=== PATIENT | male | born 1985 | race Caucasian/White ===

== ENCOUNTER 2019-10-27 00:14 | Emergency (ER) | payer OTHER ==
--- NOTE | 2019-10-27 00:46 | ED Physician Documentation ---
PD HPI BACK PAIN - Stated complaint Stated Complaint: BACK INJ - Chief complaint Chief Complaint: Back Pain - History obtained from History obtained from: Patient - History of Present Illness Timing - onset: How many days ago (4) Pain level now: 8 Location: Lower, Right, Left Quality: Pain Associated symptoms: No: Fever, Weakness, Numbness, Incontinent of urine, Unable to urinate, Hematuria, Incontinent of stool Improves with: Rest, Position (standing) Worsened by: Other (sitting/lying down; action of standing back up) Similar symptoms before: Has not had sx before Recently seen: Not recently seen - Additional information Additional information: 4 days ago, while skateboarding, patient had a few minor falls which didn't seem to cause any injury. That night, he had gradual onset, progressively worsening low back pain, worse the next morning but improved by the end of day 2. He played golf the following day without difficulty. Today, he again played golf but on his final swing of the day, he had sudden recurrence of the low back pain, more severe than previous; the pain has become progressively more intense and unrelenting. Review of Systems Constitutional: denies: Fever : denies: Unable to Void, Incontinent Skin: denies: Rash Musculoskeletal: reports: Back pain. denies: Neck pain, Pain with weight bearing Neurologic: denies: Focal weakness, Numbness PD PAST MEDICAL HISTORY - Past Medical History Past Medical History: No - Past Surgical History Past Surgical History: No - Present Medications Home Medications: Ambulatory Orders Medication Instructions Recorded Confirmed Acetaminophen 1,000 mg PO ONCE 10/27/19 10/27/19 Cyclobenzaprine [Flexeril] 10 mg PO TID PRN #20 tablet 10/27/19 HYDROcod/ACETAM 5/325 [[place] 5/325] 1 - 2 ea PO Q6H PRN #15 tablet 10/27/19 Ibuprofen [Motrin] 800 mg ORAL ONCE 10/27/19 10/27/19 - Allergies Allergies/Adverse Reactions: Allergies Allergy/AdvReac Type Severity Reaction Status Date / Time yellow fever vaccine live Allergy Anaphylaxis Verified 10/27/19 00:21 - Living Situation Living Arrangement: reports: At home - Social History Does the pt smoke?: No PD ED PE NORMAL - Vitals Vital signs reviewed: Yes - General General: Alert and oriented X 3, Well developed/nourished, Other (standing at bedside (patient says less pain when standing), appears uncomfortable at times during H+P) - Back Back: No CVA TTP, No spinal TTP - Derm Derm: Normal color, Warm and dry, No rash - Neuro Neuro: No motor deficit (5/5 dorsi/plantarflexion), No sensory deficit, Other (2+/4 bilateral patellar DTR) Results - Vitals Vitals: Vital Signs - 24 hr 10/27/19 10/27/19 00:17 01:55 Temperature 36.2 C L Heart Rate 78 88 Respiratory 18 16 Rate Blood Pressure 155/101 H 135/90 H O2 Saturation 96 99 Oxygen O2 Source Room air PD MEDICAL DECISION MAKING - ED course Complexity details: considered differential, d/w patient ED course: atraumatic low back pain without "red flags" (no fever, numbness, weakness, incontinence of bowel/bladder). emergent testing not indicated at this time; will treat symptoms and advise rest, return if worse, f/u with PMD Departure - Departure Disposition: 01 Home, Self Care Clinical Impression: Lumbar sprain Condition: Good Instructions: ED Sprain Strain Lumbar Follow-Up: [facility] [Provider Group] - Within 1 week Prescriptions: Cyclobenzaprine [Flexeril] 10 mg PO TID PRN #20 tablet PRN Reason: Spasms HYDROcod/ACETAM 5/325 [[place] 5/325] 1 - 2 ea PO Q6H PRN #15 tablet PRN Reason: Pain Forms: Activity restrictions Discharge Date/Time: 10/27/19 01:56
[2019-10-27] MEDS ORDERED: KETOROLAC 60 MG/2 ML VIAL IM STA (01:31)
[2019-10-27] MEDS ORDERED: HYDROcod/ACET 5/325 Prepack 4 PO STA (01:32)
[2019-10-27] MEDS ORDERED: CYCLOBENZAPRINE 10 MG Prepack 2 PO PRN (01:32)
[2019-10-27 01:56] VITALS: BP 135/90
== END 2019-10-27 01:56 | disposition home or self-care (01) ==
LOC: ED 00:14
DX: S33.5XXA Sprain of ligaments of lumbar spine, initial encounter (principal); V00.131A Fall from skateboard, initial encounter; Y93.51 Activity, roller skating (inline) and skateboarding; X50.9XXA Other and unspecified overexertion or strenuous movements or postures, initial encounter; Y93.53 Activity, golf; Y92.39 Other specified sports and athletic area as the place of occurrence of the external cause
CPT/HCPCS: 96372; 99283

== ENCOUNTER 2019-12-23 19:18 | Emergency (ER) | payer OTHER ==
[2019-12-23] MEDS ORDERED: KETOROLAC 60 MG/2 ML VIAL IM STA (19:49)
--- NOTE | 2019-12-23 19:53 | ED Physician Documentation ---
History of Present Illness - Stated complaint Stated Complaint: RT ANKLE INJ - Chief complaint Chief Complaint: Trauma Ext - Additonal information Additional information: 34-year-old male here with acute right lateral ankle pain after an inversion injury when skating this afternoon. He reports landing wrong on the right foot and injuring the ankle. He does have a history of minor sprains but no orthopedic surgeries. He is able to bear minimal weight on the right foot. PD PAST MEDICAL HISTORY - Past Surgical History Past Surgical History: No - Present Medications Home Medications: Ambulatory Orders Medication Instructions Recorded Confirmed Acetaminophen 1,000 mg PO ONCE 10/27/19 10/27/19 Cyclobenzaprine [Flexeril] 10 mg PO TID PRN #20 tablet 10/27/19 HYDROcod/ACETAM 5/325 [[place] 5/325] 1 - 2 ea PO Q6H PRN #15 tablet 10/27/19 Ibuprofen [Motrin] 800 mg ORAL ONCE 10/27/19 10/27/19 Ibuprofen [Motrin] 600 mg PO Q6H PRN #30 tab 12/23/19 - Allergies Allergies/Adverse Reactions: Allergies Allergy/AdvReac Type Severity Reaction Status Date / Time yellow fever vaccine live Allergy Anaphylaxis Verified 10/27/19 00:21 - Social History Does the pt smoke?: No PD ED PE NORMAL - General General: Alert and oriented X 3, No acute distress - HEENT HEENT: Atraumatic, PERRL, EOMI - Neck Neck: No adenopathy - Cardiac Cardiac: RRR, No murmur - Respiratory Respiratory: No respiratory distress - Abdomen Abdomen: Normal bowel sounds, Soft - Extremities Extremities: No deformity. No: No tenderness to palpate (Tenderness palpation of the right lateral malleolus worse. Significant swelling and ecchymosis. Full range of motion of the ankle joint. Normal flexion extension against resistance) Results - Vitals Vitals: Vital Signs - 24 hr 12/23/19 19:25 Temperature 36.9 C Heart Rate 115 H Respiratory 14 Rate Blood Pressure 132/91 H O2 Saturation 99 Oxygen O2 Source Room air PD MEDICAL DECISION MAKING - ED course Complexity details: reviewed results, d/w patient, d/w family ED course: 34-year-old male presents to the emergency department for evaluation of right lateral ankle pain after it was rolled this afternoon while skateboarding. The x-ray is negative for acute fracture. He has been placed in an air gel splint. He declined crutches. He was given ibuprofen here in the emergency department and we will recommend ibuprofen as well as rice precautions as an outpatient. Notified that if pain not markedly better in 7 to 10 days he is to return to the ER for a repeat x-ray. Departure - Departure Disposition: 01 Home, Self Care Clinical Impression: Ankle sprain Qualifiers: Encounter type: initial encounter Involved ligament of ankle: unspecified liga ment Laterality: right Qualified Code(s): S93.401A - Sprain of unspecified ligament of right ankle, initial encounter Condition: Stable Record reviewed to determine appropriate education?: Yes Instructions: ED Sprain Ankle W X Ray Prescriptions: Ibuprofen [Motrin] 600 mg PO Q6H PRN #30 tab PRN Reason: Pain Comments: Harshad the x-ray of your right ankle does not show anything broken. You most likely have a severe sprain. I recommend that you wear the air splint when out of bed for the next week. I also have prescribed some ibuprofen to help with discomfort. If your pain and inability to bear weight is not markedly better in 7 to 10 days your ankle should be re-x-rayed to make sure that no subtle fracture has been missed.
--- NOTE | 2019-12-23 20:01 | XRAY Report ---
PROCEDURE: Ankle 3 View RT INDICATIONS: Trauma TECHNIQUE: 3 views of the ankle were acquired. COMPARISON: No previous study is available for comparison. FINDINGS: Bones: No acute fractures or dislocations. Ankle mortise is normally aligned. No suspicious bony l esions. Soft tissues: No tibiotalar joint effusion. Achilles tendon appears normal. Soft tissue edema is s een surrounding the ankle that is more prominent over the lateral malleolus. IMPRESSION: No acute osseous abnormality. Soft tissue edema is seen over the lateral malleolus. If s ymptoms persist with conservative management, CT or MRI may be obtained for further evaluation. Reviewed by: uJan Smalls MD on 12/23/2019 8:00 PM PDT Approved by: Juan Smalls MD on 12/23/2019 8:00 PM PDT Station ID: [id number]
[2019-12-23 20:31] VITALS: BP 132/89
== END 2019-12-23 20:35 | disposition home or self-care (01) ==
LOC: ED 19:18
DX: S93.401A Sprain of unspecified ligament of right ankle, initial encounter (principal); V00.131A Fall from skateboard, initial encounter; X50.1XXA Overexertion from prolonged static or awkward postures, initial encounter; Y93.51 Activity, roller skating (inline) and skateboarding
CPT/HCPCS: 96372; 99281; 99283

== ENCOUNTER 2021-03-26 15:02 | Emergency (ER) | payer OTHER ==
[2021-03-26 15:32] LABS: BILIRUBIN,URINE NEGATIVE (NEGATIVE); GLUCOSE, URINE (UA) NEGATIVE (NEGATIVE); KETONES,URINE (UA) NEGATIVE (NEGATIVE); LEUKOCYTE ESTERASE, URINE NEGATIVE (NEGATIVE); NITRITE,URINE NEGATIVE (NEGATIVE); OCCULT BLOOD,URINE NEGATIVE (NEGATIVE); PH,URINE 7.5 PH (5.0-7.5); PROTEIN,URINE NEGATIVE (NEGATIVE); UROBILINOGEN,URINE 0.2 (NORMAL) E.U./dL (NORMAL)
[2021-03-26 15:36] LABS: CLARITY,URINE CLOUDY (CLEAR)
[2021-03-26 15:44] LABS: RBC,URINE None Seen /HPF (0-5); SQUAMOUS EPITHELIAL CELL,UR NONE SEEN (<= Few); WBC,URINE 0-3 /HPF (0-3)
[2021-03-26 15:45] LABS: BACTERIA,URINE Rare /HPF (None Seen)
[2021-03-26 16:05] LABS: AMORPHOUS SEDIMENT,UR Marked /LPF
--- NOTE | 2021-03-26 16:43 | ED Physician Documentation ---
History of Present Illness - Stated complaint Stated Complaint: MALE - Chief complaint Chief Complaint: General - Additonal information Additional information: 35-year-old male presents the emergency department for evaluation of 1-1/2 weeks right testicular pain. He reports ports that it is worse when he is aroused but not associated with urination or defecation. Not positional or worse with movements. No swelling of his scrotum. No sores or lesions. No dysuria urgency or frequency. No previous history of STI. he has had a vasectomy in the past Review of Systems Constitutional: denies: Fever, Chills Eyes: reports: Reviewed and negative Throat: reports: Reviewed and negative Cardiac: reports: Reviewed and negative Respiratory: reports: Reviewed and negative GI: reports: Reviewed and negative : reports: Testicular pain PD PAST MEDICAL HISTORY - Past Medical History Derm: Other - Past Surgical History Past Surgical History: No Derm: Skin cancer surgery - Present Medications Home Medications: Ambulatory Orders Medication Instructions Recorded Confirmed Acetaminophen 1,000 mg PO ONCE 10/27/19 10/27/19 Cyclobenzaprine [Flexeril] 10 mg PO TID PRN #20 tablet 10/27/19 HYDROcod/ACETAM 5/325 [[place] 5/325] 1 - 2 ea PO Q6H PRN #15 tablet 10/27/19 Ibuprofen [Motrin] 800 mg ORAL ONCE 10/27/19 10/27/19 Ibuprofen [Motrin] 600 mg PO Q6H PRN #30 tab 12/23/19 - Allergies Allergies/Adverse Reactions: Allergies Allergy/AdvReac Type Severity Reaction Status Date / Time yellow fever vaccine live Allergy Anaphylaxis Verified 03/26/21 15:13 - Social History Does the pt smoke?: No Smoking Status: Never smoker Does the pt drink ETOH?: No Does the pt have substance abuse?: No - Immunizations Immunizations are current?: Yes - POLST Patient has POLST: No PD ED PE EXPANDED - General General: Alert, No acute distress, Well developed/nourished - Male Male : Testes descended richard, Normal lie/cremastaric, Tenderness (No swelling or tenderness of the scrotum or testes itself. There is a palpable variceal or spermatic cord palpated within the spermatacord.) Results - Vitals Vitals: Vital Signs - 24 hr 03/26/21 15:08 Temperature 36.5 C Heart Rate 96 Respiratory 16 Rate Blood Pressure 144/80 H O2 Saturation 100 Oxygen O2 Source Room air - Labs Labs: Laboratory Tests 03/26/21 15:17 Urine Color YELLOW Urine Clarity CLOUDY Urine pH 7.5 Ur Specific [place] 1.020 Urine Protein NEGATIVE Urine Glucose (UA) NEGATIVE Urine Ketones NEGATIVE Urine Occult Blood NEGATIVE Urine Nitrite NEGATIVE Urine Bilirubin NEGATIVE Urine Urobilinogen 0.2 (NORMAL) Ur Leukocyte Esterase NEGATIVE Urine RBC None Seen Urine WBC 0-3 Ur Squamous Epith Cells NONE SEEN Amorphous Sediment Marked Urine Bacteria Rare - Rads (name of study) test US Radiology: Final report received (unremarkable testicular ultrasound) PD MEDICAL DECISION MAKING - ED course Complexity details: reviewed results, re-evaluated patient, d/w patient ED course: 35-year-old male presents emergency department for evaluation of 1 week of right testicular pain. It is generally fairly persistent but certainly worse when he is aroused. He reports last sexual activity about 30 days ago and was unprotected. No penile discharge or dysuria. Screening UA is not consistent with infection. An ultrasound did not show any testicular or scrotal abnormality. I discussed with the patient his actual concern for possible sexual transmitted infection and he elects at this time to take empiric treatment for possibility of chlamydia or gonorrhea. Testing is pending. I discussed that with the increased pain during arousal this may be related to the history of the previous vasectomy. If not markedly better over the next week he will request urology referral through [facility]. Otherwise emergent sooner return precautions were discussed. Departure - Departure Disposition: 01 Home, Self Care Clinical Impression: Right testicular pain Condition: Stable Record reviewed to determine appropriate education?: Yes Comments: Harshad you were seen in the emergency department today for pain in your right testicle. The ultrasound did not show any abnormal findings and the cause of your pain at this time is not clear. You did have unprotected sex about 1 month ago and after discussion here in the ER you have elected to take empiric treatment for the possibility of exposure to sexually transmitted disease. We are testing your urine for gonorrhea and chlamydia and will notify you if it is positive. The pain however may be related to the history of a vasectomy. If not markedly better over the next 7 to 10 days I recommend you follow-up with [facility] where a referral to urology may be in order. If you develop any fevers, have scrotal swelling redness or sudden severe or different pain then please return immediately to the ER for a second evaluation.
[2021-03-26] MEDS ORDERED: AZITHROMYCIN 250 MG TABLET PO STA (17:25)
[2021-03-26] MEDS ORDERED: LIDOCAINE 1% 2 ML VIAL MC ONE (17:25)
[2021-03-26] MEDS ORDERED: cefTRIAXone 500 MG VIAL IM STA (17:25)
--- NOTE | 2021-03-26 17:42 | Ultrasound Report ---
PROCEDURE: Testicle w/Doppler INDICATIONS: right scrotal pain X 10 days TECHNIQUE: Real-time scanning was performed of the scrotum and testicles, with image documentation. Color and p ulse Doppler interrogation was performed of both testicles. COMPARISON: None. FINDINGS: Right: Testicle is normal in size at 4.7 x 2.4 x 3.1 cm, and homogenous in echotexture. Epididymis is normal in overall size and morphology. No hydrocele or varicoceles. Mild prominence of the right vas deferens can be seen. Overlying scrotal skin is normal in thickness. Left: Testicle is normal in size at 4.5 x 1.7 x 3.2 cm, and homogeneous in echotexture. Epididymis is normal in overall size and morphology. Minimal prominence of the left vas deferens can be seen. No hydrocele or varicoceles. Overlying scrotal skin is normal in thickness. Doppler: Color and pulse Doppler demonstrate normal and symmetric arterial flow in both testicles. IMPRESSION: No acute testicular abnormality can be seen. Normal-appearing, symmetric vascular flow can be seen of the testicles. No testicular masses can be seen. Note is made of prominence of the vas deferens (right worse than left), which is considered to be wit hin normal limits for a postvasectomy patient. Note: Concordant preliminary findings given by the automatic outsole cutter upon the completion of the examination to Pao Mccarty at 5:25 PM on 03/26/2021. Reviewed by: Mina Licea MD on 03/26/2021 4:40 PM [facility] Approved by: Mina Licea MD on 03/26/2021 4:40 PM [facility] Station ID: [id number]
[2021-03-26 17:55] VITALS: BP 138/85
[2021-03-26 21:49] LABS: CHLAMYDIA TRACHOMATIS DNA NEGATIVE (NEGATIVE); NEISSERIA GONORRHOEAE DNA NEGATIVE (NEGATIVE)
== END 2021-03-26 17:55 | disposition home or self-care (01) ==
LOC: ED 15:02
DX: N50.811 Right testicular pain (principal); Z20.2 Contact with and (suspected) exposure to infections with a predominantly sexual mode of transmission
CPT/HCPCS: 76870; 81001; 87491; 87591; 93975; 96372; 99283; 99284; A9270; 87661

== ENCOUNTER 2022-05-04 17:09 | Emergency (ER) | payer OTHER ==
[2022-05-04 17:18] VITALS: BP 130/100
--- NOTE | 2022-05-04 18:16 | ED Physician Documentation ---
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 About an hour and a half after taking the first pill he feels very amped up and caffeinated. Shaky and jittery. No pain. Review of Systems Constitutional: denies: Fever, Chills Throat: reports: Reviewed and negative PD PAST MEDICAL HISTORY - Past Medical History Derm: Other - Past Surgical History Past Surgical History: No Derm: Skin cancer surgery - Present Medications Home Medications: Ambulatory Orders Medication Instructions Recorded Confirmed Bupropion HCl [Wellbutrin Xl] 300 mg PO DAILY 05/04/22 05/04/22 Gabapentin [Neurontin] 300 mg PO HS 05/04/22 05/04/22 LORazepam [Ativan] 1 mg PO TID PRN #6 tablet 05/04/22 Venlafaxine ER [Effexor ER] 37.5 mg PO DAILY 05/04/22 05/04/22 - Allergies Allergies/Adverse Reactions: Allergies Allergy/AdvReac Type Severity Reaction Status Date / Time yellow fever vaccine live Allergy Anaphylaxis Verified 05/04/22 17:14 - Social History Does the pt smoke?: No Smoking Status: Never smoker Does the pt drink ETOH?: No Does the pt have substance abuse?: No - Immunizations Immunizations are current?: Yes - POLST Patient has POLST: No PD ED PE NORMAL - Vitals Vital signs reviewed: Yes - General General: Alert and oriented X 3, No acute distress - HEENT HEENT: EOMI, Other (Midpoint pupils that are reactive) - Extremities Extremities: Other (Lower extremity reflexes are normal) - Neuro Neuro: Alert and oriented X 3, Normal speech Results - Vitals Vitals: Vital Signs - 24 hr 05/04/22 17:16 Temperature 36.5 C Heart Rate 110 H Respiratory 16 Rate Blood Pressure 130/100 H O2 Saturation 98 Oxygen O2 Source Room air PD Medical Decision Making - ED course ED course: 36-year-old gentleman with stimulant type side effects after starting venlafaxine today. He will not take any more venlafaxine and follow-up with his prescriber. Small number of Ativan was sent to the pharmacy. Departure - Departure Disposition: 01 Home, Self Care Clinical Impression: SSRI (selective serotonin reuptake inhibitor) causing adverse effect in therapeutic use Condition: Good Record reviewed to determine appropriate education?: Yes Prescriptions: LORazepam [Ativan] 1 mg PO TID PRN #6 tablet PRN Reason: Anxiety Comments: I sent the prescription electronically to [facility] in [place]. Follow-up with your prescriber tomorrow, do not take further venlafaxine unless otherwise advised. Return if worse.
== END 2022-05-04 18:17 | disposition home or self-care (01) ==
LOC: ED 17:09
DX: R25.1 Tremor, unspecified (principal); T43.215A Adverse effect of selective serotonin and norepinephrine reuptake inhibitors, initial encounter
CPT/HCPCS: 99282; 99284

== ENCOUNTER 2022-08-12 16:46 | Emergency (ER) | payer OTHER ==
[2022-08-12 17:03] VITALS: BP 171/90
--- NOTE | 2022-08-12 17:59 | ED Physician Documentation ---
PD HPI LOWER EXT INJURY - Stated complaint Stated Complaint: LFT FOOT MOBILITY - Chief complaint Chief Complaint: Ext Problem - History obtained from History obtained from: Patient (He was down on his knee today and felt like after that he could not dorsiflex the left ankle past 90 degrees. He is walking okay. There is no specific injury otherwise.) PD PAST MEDICAL HISTORY - Past Medical History Derm: Other - Past Surgical History Past Surgical History: No Derm: Skin cancer surgery - Present Medications Home Medications: Ambulatory Orders Medication Instructions Recorded Confirmed Gabapentin [Neurontin] 300 mg PO HS 05/04/22 05/04/22 LORazepam [Ativan] 1 mg PO TID PRN #6 tablet 05/04/22 Venlafaxine ER [Effexor ER] 37.5 mg PO DAILY 05/04/22 05/04/22 buPROPion HCL [Wellbutrin Xl] 300 mg PO DAILY 05/04/22 05/04/22 - Allergies Allergies/Adverse Reactions: Allergies Allergy/AdvReac Type Severity Reaction Status Date / Time yellow fever vaccine live Allergy Anaphylaxis Verified 05/04/22 17:14 - Social History Does the pt smoke?: No Smoking Status: Never smoker Does the pt drink ETOH?: No Does the pt have substance abuse?: No - Immunizations Immunizations are current?: Yes - POLST Patient has POLST: No PD ED PE NORMAL - Vitals Vital signs reviewed: Yes - General General: Alert and oriented X 3, No acute distress - Back Back: No CVA TTP, No spinal TTP - Derm Derm: Normal color, Warm and dry - Extremities Extremities: Other (On initial examination he is unable to dorsiflex the left ankle past 90 degrees. I forced him into more flexion and after that he was able to have full range of motion of his ankle.) - Neuro Neuro: Alert and oriented X 3, Normal speech Results - Vitals Vitals: Vital Signs - 24 hr 08/12/22 16:56 Temperature 36.3 C L Heart Rate 90 Respiratory 18 Rate Blood Pressure 171/90 H O2 Saturation 100 Oxygen O2 Source Room air PD Medical Decision Making - ED course ED course: On initial examination he is unable to dorsiflex the left ankle past 90 degrees. I forced him into more flexion and after that he was able to have full range of motion of his ankle. Departure - Departure Disposition: 01 Home, Self Care Clinical Impression: Ankle injury Qualifiers: Encounter type: initial encounter Laterality: left Qualified Code(s): S99.912A - Unspecified injury of left ankle, initial encounter Condition: Good Record reviewed to determine appropriate education?: Yes Comments: Given your symptoms and at least partial resolution with range of motion exercises I believe you probably had a piece of cartilage or tendon stuck in the joint and we have resolved that. Return if worse. Follow-up with your primary care physician. You can walk and bear weight as tolerated.
== END 2022-08-12 18:07 | disposition home or self-care (01) ==
LOC: ED 16:46
DX: S99.912A Unspecified injury of left ankle, initial encounter (principal); X58.XXXA Exposure to other specified factors, initial encounter; Z79.899 Other long term (current) drug therapy
CPT/HCPCS: 99281; 99282

== ENCOUNTER 2022-11-21 20:26 | Outpatient (CLI) | payer OTHER | END 2022-11-21 20:27 | disposition home or self-care (01) | LOC: SC 20:26 | PROVIDERS: ATTEND Nurse Practitioner Family | DX: G47.61 Periodic limb movement disorder (principal) | CPT/HCPCS: 95810 ==

== ENCOUNTER 2022-12-06 08:19 | Outpatient (CLI) | payer OTHER ==
--- NOTE | 2022-12-06 08:41 | Sleep Patient Instructions ---
Sleep Center Visit Summary - Patient Visit Information Reason for Visit: Sleep study followup - Patient Instructions Additional Instructions: Your sleep study today was negative for significant sleep disordered breathing. However, you did have moderate periodic leg movements for which you should continue follow up with your primary care provider. You were found to have episodes of snoring. There are different ways to control snoring including weight loss, oral devices made by a dentist or surgical options through ENT specialist. You should not use oral devices that do not fit properly because they can affect your bite. You should also check insurance coverage of oral devices for snoring because they may not be cover well. You may obtain a referral to an ENT specialist through your primary provider Follow-up as needed. - Clinic Information Contact: [facility] [address] [place] [address] [email or web address] T: [phone]
--- NOTE | 2022-12-06 08:44 | SLEEP CARE CONSULTATION ---
Information from patient questionnaire entered by Henrietta Arauz. I have reviewed and concur with the information entered by Henrietta Arauz. This document represents the service I personally performed and the decisions made by , Brianna Jara ARNP. History of Present Illness Service Date and Time: 12/06/2022818 Initial [place] Sleepiness Scale score: 13 (11/17/22) Current [place] Sleepiness Scale score: 11 (12/06/22) Additional HPI information: ANGELINA GUTIÉRREZ returns for follow up and results of the recently performed polysomnography. The patient was informed of the following findings: No significant sleep disordered breathing with an average AHI of 0.3 and shara oxygen saturation of 92%. There was moderate PLMs that did not fragment sleep architecture. I explained the pathophysiology behind obstructive sleep apnea. Patient does not have sleep apnea and was advised how weight gain could increase the risk of developing sleep apnea in the future. I strongly encouraged the patient to lose weight. Patient has light to moderate snoring. Snoring can be reduced by weight loss. Weight loss is best achieved with diet consult. Patient instructed to contact PCP for referral. Snoring can also be treated with an oral appliance from a dentist. Advised to check insurance coverage. In addition, an ENT evaluation can be do to see if other treatment is indicated. Patient does not drink alcohol. Patient was cautioned about risks of drowsy driving until sleepiness symptoms resolve. Patient denies drowsy driving. Sleep Study - Results Type of Sleep Study: Polysomnography (COMPLETED 11/21/22) Prior sleep studies: No Polysomnography/Home Sleep Study results: IMPRESSION: The quality of the study is good. The patient had slightly reduced sleep efficiency sleep onset insomnia. The sleep architecture was relatively normal considering the first- night effect. Respiratory monitoring showed no significant sleep disordered breathing obstructive sleep apnea- hypopnea (AHI = 0.3) associated with frequent arousals, oxyhemoglobin desaturation and no significant hypoxia (hsara oxygen saturation of 92%). The patient slept mostly supine (supine AHI = 0.7; non-supine = 0.00). Snore was light to moderate in intensity. There was moderate periodic leg movement of sleep not associated with sleep fragmentation. Cardiac rhythm was normal sinus rhythm without significant arrhythmia. No abnormal behavior (parasomnia) observed during the night. Allergies and Home Medications Known drug allergies: Yes (as listed) Drug allergies reviewed: Yes Home medication list reviewed: Yes (no changes) Allergy and home medication list: Allergies yellow fever vaccine live Allergy (Verified 12/05/22 09:03) Anaphylaxis Review of Systems Review of systems same as previous: Yes (no changes) Physical Exam Vital signs obtained and entered by: HENRIETTA Dia MA Blood Pressure: 110/70 (LEFT ARM) Cuff size: regular Heart Rate: 87 O2 Saturation: 99 Height: 5 ft 9 in Weight: 190 lb Body Mass Index: 28.0 BMI Classification: Overweight Impression and Plan 1. Periodic limb movement, moderate, that did not fragment patients sleep. Periodic limb movement of sleep (PLMS) is characterized by episodes of repetitive limb movements that occur during sleep and usually involve the lower limbs. The etiology is unknown. Caffeine can aggravate PLMS and should be avoided. Sleep hygiene methods can also improve sleep as well as lifestyle changes such as regular exercise. Patient was advised that no treatment is needed at this time. If symptoms increase, then further evaluation is indicated. 2. Snoring but no significant sleep disordered breathing. Patient advised that often weight loss will reduce snoring as well as apnea risk. An oral appliance can also be used for snoring. This would require a dental consultation. Patient cautioned not to use other online appliances as can cause bite issues. Patient is advised to check if insurance will cover. An ENT consult can also be helpful to determine if any other treatment is an option. * Follow up with PCP for moderate PLMs as needed * Maintain a healthy weight * The patient is cautioned about driving when sleepy. * Return as needed for follow up. Counseling Topics: Weight loss health impact Visit Type: In Office Time Spent with Patient (minutes): 13 Provider Statement: I spent 100% of the Face to Face Visit with the patient with greater than 50% spent counseling the patient and coordination of care.
[2022-12-06 08:49] VITALS: BP 110/70; O2SAT 99
== END 2022-12-06 08:20 | disposition home or self-care (01) ==
LOC: SC 08:19
PROVIDERS: ATTEND Nurse Practitioner Family
DX: G47.61 Periodic limb movement disorder (principal); R06.83 Snoring; E66.3 Overweight; Z68.28 Body mass index [BMI] 28.0-28.9, adult
CPT/HCPCS: 99212